=== PATIENT | male | born 1970 | race Hispanic/Latino ===

== ENCOUNTER 2018-09-15 09:56 | Emergency (ER) | payer MEDICARE ==
[~2018-09-15] VITALS: Ht 170.2 cm; Wt 79.4 kg
[2018-09-15] MEDS ORDERED: TETRACAINE HCL 0.5% 4 ML OPHTH SOLN ONE (10:15)
[2018-09-15] MEDS ORDERED: FLUORESCEIN SODIUM 1 STRIP STRIP ONE (10:16)
[2018-09-15] MEDS ORDERED: ACYCLOVIR 800 MG TABLET PO SCH (11:15)
== END 2018-09-15 11:13 | disposition home or self-care (01) ==
LOC: EDH 09:56
DX: B02.22 Postherpetic trigeminal neuralgia (principal); H57.89 Other specified disorders of eye and adnexa; I10 Essential (primary) hypertension; J44.9 Chronic obstructive pulmonary disease, unspecified; E78.5 Hyperlipidemia, unspecified

== ENCOUNTER 2018-09-17 12:13 | Emergency (ER) | payer MEDICARE ==
[2018-09-17] MEDS ORDERED: ONDANSETRON ODT 4 MG TAB ONE (13:52)
[2018-09-17] MEDS ORDERED: TETRACAINE HCL 0.5% 4 ML OPHTH SOLN ONE (13:52)
[2018-09-17] MEDS ORDERED: MORPHINE SULFATE 5 MG/ML VIAL ONE (13:53)
== END 2018-09-17 14:52 | disposition home or self-care (01) ==
LOC: EDH 12:13
DX: B02.30 Zoster ocular disease, unspecified (principal); R51 Headache; J44.9 Chronic obstructive pulmonary disease, unspecified; E78.5 Hyperlipidemia, unspecified; I10 Essential (primary) hypertension; K74.60 Unspecified cirrhosis of liver; Z72.0 Tobacco use
CPT/HCPCS: 96372; 99283; J2270

== ENCOUNTER 2023-01-10 09:28 | Emergency (ER) | payer MEDICARE ==
[~2023-01-10] VITALS: Ht 172.7 cm; Wt 80.7 kg
[2023-01-10] MEDS ORDERED: 0.9%NACL 1000ML 2,000 ML IV ONE (10:00)
[2023-01-10 10:05] LABS: BASOPHILS % (AUTO) 0.5 % (0.0-5.0); EOSINOPHILS % (AUTO) 1.2 % (0.0-8.0); HEMATOCRIT 45.2 % (42-54); LYMPHOCYTES % (AUTO) 31.7 % (21.0-51.0); MEAN CORPUSCULAR HEMOGLOBIN 30.7 pg (27.0-33.0); MEAN CORPUSCULAR HGB CONC 34.3 g/dL (32.0-36.0); MEAN CORPUSCULAR VOLUME 89.5 fL (79-99); MONOCYTES % (AUTO) 9.7 % (3.0-13.0); NEUTROPHILS % (AUTO) 56.3 % (40.0-77.0); PLATELET COUNT (AUTO) 284 K/uL (130-400); RED BLOOD CELL COUNT(AUTO) 5.05 MIL/uL (4.50-6.20); RED CELL DISTRIBUTION WIDTH 13.3 % (11.0-15.5); WHITE BLOOD COUNT (AUTO) 9.4 K/uL (4.8-10.8)
[2023-01-10 10:13] LABS: CREATININE 1.8 mg/dL (0.5-1.5); POTASSIUM 4.2 mmol/L (3.5-5.1)
[2023-01-10 10:16] LABS: APPEARANCE,URINE CLOUDY (CLEAR); BILIRUBIN,URINE NEGATIVE (NEGATIVE); COLOR,URINE YELLOW (YELLOW); GLUCOSE, URINE (UA) NEGATIVE (NEGATIVE); KETONES,URINE NEGATIVE (NEGATIVE); LEUKOCYTE ESTERASE ,URINE NEGATIVE Leu/uL (NEGATIVE); NITRATE,URINE NEGATIVE (NEGATIVE); OCCULT BLOOD,URINE SMALL (NEGATIVE); PH,URINE 5.5 (5.0-8.0); PROTEIN,URINE 100 mg/dL (NEGATIVE); UROBILINOGEN,URINE 0.2 mg/dL (0.2-1.0)
[2023-01-10 10:18] LABS: ALBUMIN 4.3 g/dL (3.5-5.0); TOTAL PROTEIN, SERUM 8.7 g/dL (6.0-8.3)
[2023-01-10 10:33] LABS: BACTERIA,URINE RARE /HPF (None Seen); HYALINE CASTS, URINE 26-50 /LPF (0-1 /LPF); MUCUS,URINE RARE LPF (None Seen); SQUAMOUS EPITHELIAL CELL,UR RARE /HPF (0-2); WBC,URINE 0-1 /HPF (0-1)
[2023-01-10] MEDS ORDERED: LOPE2TAB26 PO (12:20)
[2023-01-10] MEDS ORDERED: METR-172 PO (12:20)
[2023-01-10 12:25] VITALS: BP 124/71
[2023-01-10] MEDS ORDERED: CYCL10TA16 PO (12:36)
== END 2023-01-10 12:39 | disposition home or self-care (01) ==
LOC: EDH 09:28
DX: K52.9 Noninfective gastroenteritis and colitis, unspecified (principal); G89.29 Other chronic pain; M54.50 Low back pain, unspecified; I10 Essential (primary) hypertension; E78.00 Pure hypercholesterolemia, unspecified; J44.9 Chronic obstructive pulmonary disease, unspecified; F41.9 Anxiety disorder, unspecified; Z98.890 Other specified postprocedural states; Z79.899 Other long term (current) drug therapy
CPT/HCPCS: 99284; 96360; 82270; 84484; 80053; 83690; 85025; 87046; 87324; 81001; 36415; 93005; J7030

== ENCOUNTER → 2024-07-17 | Outpatient (CLI) | payer MEDICARE ==
[~2024-07-17] MED LIST: CYCL10TA16 PO; LOPE2TAB26 PO; METR-172 PO
--- NOTE | 2024-07-17 17:25 | HMCSR ---
APPROVED REPORT EXAM: Two-dimensional and M-mode echocardiogram with Doppler and color Doppler. INDICATION ICD: Unstable angina I20.0 2D Dimensions RVDd4.1 cmLVEF(%)51.2 (>50%)LVED Vol(simp.)108.0 mL IVSd0.7 (0.7-1.1cm)FS(%)26 %LVES Vol(simp.)34.6 mL LVDd5.3 (3.8-5.6cm)LA (2D)4.0 (1.6-4.0cm)LVEF(%, simp.)68 % PWd1.0 (0.7-1.1cm)Ao Root(2D)3.6 (2.0-3.7cm)LA ESV INDEX (4CH)25.40 mL/m2 IVSs1.1 cmLVOT diam2.2 (1.8-2.4cm)LA ESV INDEX (2CH)27.50 mL/m2 LVDs3.9 (2.5-4.0cm)IVC diam1.2 cmLA ESV INDEX (BP)25.70 mL/m2 PWs1.3 cm Deformation Strain Apical 420.0 % Apical 229.0 % Apical 327.0 % Global Qjrvmx17.0 % M-Mode Dimensions EPSS0.6 cm LA (MM)3.8 (1.6-4.0cm) Ao Root(MM)3.6 (2.0-3.7cm) Aortic Valve AoV VTI0.3 mAo Mean GR6.0 mmHgLVOT VTI0.26 m BOB (VMAX)3.0 cm2AVA (VTI) 3.0 cm2 Mitral Valve MV E Vmax64.0 cm/sDECEL Qctn083 ms MV A Vmax69.4 cm/sP 1/2 T61 ms E/A ratio0.9MVA (PHT)3.6 cm2 TDI E/E' Medial7.7E/E' Lateral7.5 Medial E' Peak V8.30 cm/sLateral E' Peak V8.50 cm/s Tricuspid Valve TR Vmax2.6 m/sRAP (EST) 3 jrQrBDAX33.5 mmHg TR Peak GR27.5 mmHg Left Ventricle The left ventricle is normal size. GLS -25.0 There is normal LV segmental wall motion. There is rani l left ventricular wall thickness. LVEF is 65-70%. The left ventricular diastolic function is normal. Right Ventricle The right ventricle is normal size. The right ventricular systolic function is normal. Atria The left atrium size is normal. The right atrium size is normal. Aortic Valve The aortic valve is normal in structure. No aortic regurgitation is present. There is no aortic valvu lar stenosis. Mitral Valve The mitral valve is normal in structure. There is no mitral valve regurgitation noted. There is no mi tral valve stenosis. Tricuspid Valve The tricuspid valve is normal in structure. There is mild tricuspid valve regurgitation noted. Pulmonic Valve The pulmonary valve is normal in structure. There is no pulmonic valvular regurgitation. Great Vessels The aortic root is normal in size. The IVC is normal in size and collapses >50% with inspiration. Pericardium There is no pericardial effusion. Conclusion LVEF is 65-70%. GLS -25.0 There is normal LV segmental wall motion. The left ventricular diastolic function is normal. The left atrium size is normal. There is no pericardial effusion.
== END | disposition home or self-care (01) ==
LOC: RAH 13:12
PROVIDERS: ATTEND Internal Medicine Cardiovascular Disease
DX: I07.1 Rheumatic tricuspid insufficiency (principal); I20.0 Unstable angina
CPT/HCPCS: 93306; 93356

== ENCOUNTER 2024-08-21 12:01 | Emergency (ER) | payer MEDICARE ==
[~2024-08-21] VITALS: Ht 170.2 cm; Wt 81.2 kg
[2024-08-21] MEDS ORDERED: SULF1TAB42 PO (14:45)
--- NOTE | 2024-08-21 14:49 | ERN ---
General Chief Complaint: Earache Stated Complaint: LEFT EAR INFECTION, PAIN Time Seen by MD: 12:29 Time Seen by Midlevel: 12:29 Source: patient History of Present Illness Initial Comments Patient is a 53-year-old male with a past medical history of hypertension and HIV presenting to the emergency department with an abscess to the posterior aspect of the left earlobe. No fever, chills, or any other symptoms reported at this time. He 1st noticed the abscess about five days ago and has progressively gotten bigger. Denies taking any antibiotics are seen his primary care doctor for this issue. No other concerns reported at this time. Allergies: Coded Allergies: No Known Drug Allergies (Verified Allergy, Unknown, 09/15/18) Home Meds Active Scripts Cyclobenzaprine HCl (Flexeril) 10 Mg Tab, 10 MG PO TID for 3 Days, #9 TAB Prov:CLINT ALMONTE V [facility] 01/10/23 Loperamide HCl (Loperamide) 2 Mg Tablet, 2 MG PO DAILY PRN for DIARRHEA for 30 Days, #30 TAB Take 2 now then 1 tablet after every loose stool. Take no more than 16 mg/day. Prov:CLINT ALMONTE V [facility] 01/10/23 Metronidazole (Metronidazole) 500 Mg Tablet, 500 MG PO TID for 7 Days, #2 TAB Prov:CLINT ALMONTE V [employer] 01/10/23 Past Medical History Past Medical History: COPD, High Cholesterol, HIV, Hypertension Medical History Other: HERNIATED DISK Past Surgical History: None Surgical History Other: NECK ROS Dictation CONSTITUTIONAL: Negative except for HPI HEAD/FACE: Negative except for HPI EENT: Negative except for HPI RESPIRATORY: Negative except for HPI GASTROINTESTINAL/ABDOMINAL: Negative except for HPI GENITOURINARY: Negative except for HPI MUSCULOSKELETAL: Negative except for HPI INTEGUMENTARY: Negative except for HPI NEUROLOGICAL/PSYCH: Negative except for HPI HEMATOLOGIC/LYMPHATIC: Negative except for HPI All Systems Negative, Except as noted above. 13 point review of systems assessed and all negative except for above. Physical Exam Physical Exam Dictation PHYSICAL EXAM: GENERAL: alert,, awake oriented x 3 HEENT: EOMI, Sclera non icteric, moist mucosa,1 x 1 cm abscess with surrounding erythema to the posterior aspect of the left earlobe NECK: Supple, no JVD, trachea midline LUNGS: Clear breath sounds bilaterally. No wheezes HEART: Regular rate and rhythm. Normal S1 and S2, without murmurs ABD: Abdomen soft, nontender. Bowel sounds present EXT: No clubbing or cyanosis, NEURO: Alert and oriented to person, follows commands MDM MDM: Patient is a 53-year-old male with a past medical history of hypertension and HIV presenting to the emergency department with an abscess to the posterior aspect of the left earlobe. No fever, chills, or any other symptoms reported at this time. He 1st noticed the abscess about five days ago and has progressively gotten bigger. Denies taking any antibiotics are seen his primary care doctor for this issue. No other concerns reported at this time. On physical examination there is a1 x 1 cm abscess to the posterior aspect of the left earlobe. 1 cc of 1% lidocaine without epinephrine was injected. The area was then drained with purulent discharge. No complications. Area was cleansed and patient was given one of ceftriaxone IM in the emergency department. Patient was discharged home with a prescription for Bactrim. Differential diagnosis: Abscess, otitis externa, cellulitis There are no social concerns with this patient. Prescription drug management Prescriptions will include: Bactrim Medical management and examination interpretation discussions were had by me with other qualified healthcare professionals as indicated for the patient's care. ED Course Orders Procedure Category Date Status Time *Nursing CPOE 08/21/24 Verified Communication: 14:43 Ceftriaxone 1g Vial PHA 08/21/24 Verified (Rocephine 1g Inj) 15:00 Vital Signs Date Time Temp Pulse Resp B/P (MAP) Pulse Ox O2 Delivery O2 Flow Rate FiO2 08/21/24 12:20 98.2 80 20 160/98 99 Room Air 0 Procedure Dictation Abscess drainage (Incision/Drainage) Performed by: Sierra Brady PA-C Authorized by: Patient Consent: Verbal consent obtained. Risks and benefits: Risks, benefits, and alternatives were discussed Consent given by: Patient Patient understanding: patient states understanding of the procedure being performed Patient consent: the patient's understanding of the procedure matches consent given Patient identity confirmed: arm band Time out: Immediately prior to procedure a "time out" was called to verify the correct patient, procedure, equipment, student support services director and site/side marked as required. Type: abscess Location details: Left ear Anesthesia: local infiltration Local anesthetic: lidocaine 1% without epinephrine Anesthetic total:1ml Patient sedated: no Scalpel size: 11 Incision type: single straight Complexity: simple Drainage: purulent Drainage amount: moderate Wound treatment: drained Patient tolerance: Patient tolerated the procedure well with no immediate complications. DX & DISP Disposition: Discharge Departure Impression: Primary Impression: Abscess of left external ear Condition: Stable Scripts Sulfamethoxazole/Trimethoprim (Bactrim Ds Tablet) 800 Mg-160 Mg Tablet 1 TAB PO BID for 7 Days, #14 TAB 0 Refills Prov: SIERRA BRADY 08/21/24 Additional Instructions: Your left ear abscess was successfully drained with no complications. You were given antibiotics in the emergency department. I have given you a prescription for oral antibiotics for outpatient management. Follow up with your primary care doctor in 2-3 days for repeat evaluation. If you develop any new or worsening symptoms please report to the ER for further evaluation Referrals: AURA MILLER MD (PCP) Time of Disposition: 14:45 I have reviewed the case, and I agree with, Diagnosis and Plan I performed the substantive portion of the visit. I have reviewed and personally made and approve the management plan that is documented in the note by myself or the MIHIR. I acknowledge for responsibility for the patient's management plan. SIERRA BRADY Aug 21, 2024 14:49
[2024-08-21] MEDS: cefTRIAXone 1G VIAL IM ONE (14:56)
[2024-08-21] MEDS: LIDOCAINE 1%-EPI 1:100,000 20 ML VIAL ONE (14:59)
[2024-08-21 15:15] VITALS: BP 152/72; PULSE 75; RESP 18; TEMP 98.3; O2SAT 100
== END 2024-08-21 15:40 | disposition home or self-care (01) ==
LOC: EDH 12:01
DX: H60.02 Abscess of left external ear (principal); E78.00 Pure hypercholesterolemia, unspecified; I10 Essential (primary) hypertension; J44.9 Chronic obstructive pulmonary disease, unspecified; Z21 Asymptomatic human immunodeficiency virus [HIV] infection status
CPT/HCPCS: 69000; 99283; 96372; J3490; J0696

== ENCOUNTER → 2024-09-20 | Outpatient (CLI) | payer MEDICARE ==
[~2024-09-20] MED LIST changes: +SULF1TAB42 PO
--- NOTE | 2024-09-21 08:22 | HMCSR ---
APPROVED REPORT Laterality: Bilateral Indications Claudication: , PAD VELOCITY AND DOPPLER WAVEFORM ANALYSIS PLUMBER'S ASSISTANT (R) 172.9cm/sec, Triphasic, PLUMBER'S ASSISTANT (L) 187.9cm/sec, Triphasic, Prof Fem Art. (R) 78.3cm/sec, Triphasic, Prof Fem Art. (L) 70.1cm/sec, Triphasic, Fem Art Prox. (R) 112.6cm/sec, Triphasic, Fem Art Prox. (L) 115.8cm/sec, Triphasic, Fem Art Mid. (R) 96.1cm/sec, Triphasic, Fem Art Mid. (L) 74.5cm/sec, Triphasic, Fem Art Dist (R) 100.7cm/sec, Triphasic, Fem Art Dist. (L) 56.6cm/sec, Triphasic, Pop Art(AK) (R) 67.6cm/sec, Triphasic, Pop Art (AK) (L) 62.1cm/sec, Triphasic, Pop Art (Fossa)(R) 72.5cm/sec, Triphasic, Pop Art (Fossa) (L) 49.0cm/sec, Triphasic, Pop Art(BK) (R) 84.3cm/sec, Triphasic, Pop Art (BK) (L) 69.0cm/sec, Triphasic, WATER TRAINER Prox. (R) 65.5cm/sec, Triphasic, WATER TRAINER Prox. (L) 76.3cm/sec, Triphasic, WATER TRAINER Mid. (R) 81.6cm/sec, Triphasic, WATER TRAINER Mid. (L) 64.6cm/sec, Triphasic, WATER TRAINER Dist. (R) 75.4cm/sec, Triphasic, WATER TRAINER Dist. (L) 88.8cm/sec, Triphasic, Per Art Prox. (R) 44.9cm/sec, Triphasic, Per Art Prox. (L) 46.7cm/sec, Triphasic, Per Art Mid. (R) 36.8cm/sec, Triphasic, Per Art Mid. (L) 39.3cm/sec, Triphasic, Per Art Dist. (R) 33.2cm/sec, Triphasic, Per Art Dist. (L) 33.1cm/sec, Triphasic, LESLIE Prox. (R) 87.0cm/sec, Triphasic, LESLIE Prox. (L) 67.7cm/sec, Triphasic, LESLIE Mid. (R) 68.2cm/sec, Triphasic LESLIE Mid. (L) 64.4cm/sec, Triphasic, LESLIE Dist. (R) 79.9cm/sec, Triphasic, LESLIE Dist. (L) 63.6cm/sec, Triphasic, Technologist Impression No evidence of significant arterial insufficiency of bilateral lower extremities. Conclusion No evidence of significant arterial insufficiency of bilateral lower extremities. Conclusion No evidence of significant arterial insufficiency of bilateral lower extremities.
== END | disposition home or self-care (01) ==
LOC: SHCH 10:59
PROVIDERS: ATTEND Internal Medicine Cardiovascular Disease
DX: I73.9 Peripheral vascular disease, unspecified (principal)
CPT/HCPCS: 93925

== ENCOUNTER → 2024-12-05 | Outpatient (CLI) | payer MEDICARE ==
[~2024-12-05] MED LIST changes: +IOHEXOL 350 MG/ML 100ML INFUS..BTL IV ONE; +metoPROLOL tartRATE 1 MG/ML 5ML VIAL IV ONE
--- NOTE | 2024-12-05 10:32 | HMCIMG ---
CT CARDIAC ANGIO W/CONT. CCTA HISTORY: Unstable angina COMPARISON: None TECHNIQUE: Multiple sequential axial images of the chest were obtained along with the CT angiogram of the chest study. Patient was given 100 cc of Omnipaque through intravenous route. FINDINGS: There is no evidence of pulmonary nodule or parenchymal disease. No pleural effusion or pericardial effusion is seen. There is no evidence of pneumothorax. There are normal size mediastinal and hilar lymph nodes. The heart is not enlarged. Degenerative changes of the thoracolumbar spine are present. IMPRESSION: 1. No evidence of pulmonary nodule or effusion is seen. Please see CT angiogram report of coronary arteries.
--- NOTE | 2024-12-07 13:42 | CARDIOLOGY ---
RAD REPORT: CORNARY CT ANGIO RADIOLOGY REPORT: CORONARY CT ANGIOGRAPHY DATE: December 07, 2024 QUALITY: Excellent CLINICAL HISTORY AND INDICATION: [ chest pain ] TECHNIQUE: After obtaining a preliminary poultry husbandman image, contrast imaging performed on an [id number] scanner. A dedicated, limited window, coronary imaging protocol was used, with single breath-hold, retrospective ECG gating, and automated arrhythmia rejection. 100 cc of low osmolar contrast agent: Omnipaque 350 was delivered via a 18-gauge IV catheter in the right antecubital fossa, using a power injector and followed by 60 cc of normal saline bolus as a chaser. Collimated images were reformatted at 0.5 mm intervals, and sent to an offline independent workstation for interpretation, using 3D anatomic reconstructions: Curved multiplanar reconstructions, maximum intensity projections, and multiplanar imaging. 10 mg IV metoprolol was administered prior to scanning. 0.8 mg SL nitroglycerin was given. CORONARY ARTERY DESCRIPTIONS: The coronary arteries arise in normal position. Left main coronary artery: Normal caliber vessel that trifurcates into the LAD, ramus and LCx. No stenosis. Left anterior descending coronary artery: Normal caliber vessel and gives rise to diagonal and septal branches. No stenosis. Ramus: Normal caliber. No stenosis. Left circumflex coronary artery: Normal caliber, nondominant and gives rise to a large OM branch. No stenosis. Right coronary artery: Large, dominant vessel giving rise to the PL and PDA bra nches. No stenosis. CAD-RADs: 0, absence of CAD. Thoracic Aorta: Normal diameter. Alie Alvarez MD Cardiovascular Disease [facility] ALIE ALVAREZ MD December 07, 2024 13:42
== END | disposition home or self-care (01) ==
LOC: RAH 08:27
PROVIDERS: ATTEND Internal Medicine Cardiovascular Disease
DX: I20.0 Unstable angina (principal); M47.815 Spondylosis without myelopathy or radiculopathy, thoracolumbar region
CPT/HCPCS: 75574; J3490; Q9967